=== PATIENT | male | born 1970 | race African-American/Black ===

== ENCOUNTER 2022-01-12 03:15 | Emergency (ER) | payer SELFPAY ==
[2022-01-12] MEDS ORDERED: FLUORESCEIN NA 1 EA STRIP OU ONE (03:33)
[2022-01-12 03:37] VITALS: BP 206/109; PULSE 76; TEMP 98.9; BMI 30.2
[2022-01-12] MEDS ORDERED: FLUORESCEIN NA 1 EA STRIP ONE (03:38)
[2022-01-12] MEDS ORDERED: TETRACAINE 0.5% OPHTH SOLN 2 ML BOTTLE OU ONE (03:40)
[2022-01-12] MEDS ORDERED: ONDANSETRON 4 MG TABLET PO ONE (03:40)
[2022-01-12] MEDS ORDERED: ONDANSETRON *ODT* 4 MG TABLET ONE (03:44)
[2022-01-12] MEDS ORDERED: TETRACAINE 0.5% OPHTH SOLN 2 ML BOTTLE ONE (03:44)
== END 2022-01-12 06:50 | disposition home or self-care (01) ==
LOC: JER 03:15
DX: H10.213 Acute toxic conjunctivitis, bilateral (principal)
CPT/HCPCS: 99283-25

== ENCOUNTER 2022-01-27 22:40 | Emergency (ER) | payer SELFPAY ==
[2022-01-27 22:46] VITALS: BP 205/125; PULSE 78; TEMP 99.4; BMI 30.2
[2022-01-27] MEDS ORDERED: amLODIPine BESYLATE 5 MG TABLET (FP) PO ONE (23:14)
[2022-01-27] MEDS ORDERED: amLODIPine BESYLATE 5 MG TABLET (FP) ONE (23:54)
== END 2022-01-28 00:27 | disposition home or self-care (01) ==
LOC: JER 22:40
DX: I10 Essential (primary) hypertension (principal)
CPT/HCPCS: 93005; 93010; 99283-25

== ENCOUNTER 2024-02-09 06:50 | Emergency (ER) | payer OTHER ==
[2024-02-09 07:01] VITALS: BP 149/95; PULSE 70; RESP 18; TEMP 98.2; BMI 28.3
[2024-02-09 08:23] LABS: PROTHROMBIN TIME (PATIENT) 11.6 SEC (9.7-13.0)
[2024-02-09 08:25] LABS: ACTIVATED PTT 34.2 SECONDS (25.2-36.5)
[2024-02-09 08:39] LABS: BASO % 0.8 % (0-2.0); EOS % 1.3 % (0-4.5); HEMATOCRIT 39.5 % (35.4-49); LYMPH % 24.8 % (8-40); MCHC 32.9 g/dl (32.0-35.9); MEAN CELL VOLUME 88.4 fl (80-96); MEAN PLT VOLUME 7.8 fl (7.5-11.1); MONO % 8.1 % (3.8-10.2); PLATELET COUNT 303 10^3/uL (134-434); RBC 4.47 M/mm3 (4.00-5.60); RDW 14.6 % (11.9-15.9); WHITE BLOOD COUNT 8.6 K/mm3 (4.0-10.0)
[2024-02-09] MEDS: OXYMETAZOLINE 0.05% NASAL SOLUTION 15 ML BOTTLE NS ONE (08:47)
== END 2024-02-09 10:11 | disposition home or self-care (01) ==
LOC: JER 06:50
DX: R04.0 Epistaxis (principal)
CPT/HCPCS: 36415; 85025; 85610; 85730; 99283-25